=== PATIENT | female | born 1940 | race Caucasian/White ===

== ENCOUNTER 2019-05-08 18:49 | Inpatient (IN) | payer MEDICARE, BC ==
[2019-05-08] MEDS ORDERED: ASPIRIN 81 MG PO STA (19:06)
--- NOTE | 2019-05-08 19:26 | ED ---
General Adult HPI - General Source: patient, RN notes reviewed Mode of arrival: ambulatory Limitations: no limitations <Jason Flores - Last Filed: 05/08/19 19:52> <Dionisio Kapadia - Last Filed: 05/08/19 21:19> - General Chief complaint: Shortness of Breath Stated complaint: Dyspnea Time Seen by Provider: 05/08/19 19:06 - History of Present Illness Initial comments: Patient is a pleasant 78-year-old female presenting to the emergency department with exertional dyspnea. Symptoms have been occurring for a couple of days, worse today. Dyspnea is minimal at rest. Patient did have mild pressure in her chest yesterday, none today. Patient does have occasional palpitations. Patient has been seen her doctor regarding pressure medication and did have recent change in month ago. No leg pain or leg swelling. Patient did have somewhat similar symptoms around a month ago however does not chronically have the symptoms. (Jason Flores) - Related Data Home Medications Medication Instructions Recorded Confirmed Aspirin EC [Ecotrin Low Dose] 162 mg PO HS 05/08/19 05/08/19 Cyanocobalamin (Vitamin B-12) 1,000 mcg PO DAILY 05/08/19 05/08/19 [Vitamin B-12] Levothyroxine Sodium [Synthroid] 125 mcg PO DAILY 05/08/19 05/08/19 Losartan [Cozaar] 25 mg PO DAILY 05/08/19 05/08/19 Magnesium Oxide [Mag-Ox] 400 mg PO HS 05/08/19 05/08/19 Rosuvastatin [Crestor] 10 mg PO HS 05/08/19 05/08/19 Allergies Allergy/AdvReac Type Severity Reaction Status Date / Time amoxicillin AdvReac Nausea & Verified 05/08/19 20:20 Vomiting & Diarrhea Review of Systems ROS Other: All systems not noted in ROS Statement are negative. Constitutional: Denies: fever Eyes: Denies: eye pain ENT: Denies: ear pain Respiratory: Reports: as per HPI, dyspnea. Denies: cough Cardiovascular: Reports: as per HPI, palpitations Endocrine: Reports: fatigue Gastrointestinal: Denies: abdominal pain, nausea Genitourinary: Denies: urgency Musculoskeletal: Denies: back pain Skin: Denies: rash Neurological: Denies: weakness <Jason Flores - Last Filed: 05/08/19 19:52> ROS Other: All systems not noted in ROS Statement are negative. <Dionisio Kapadia - Last Filed: 05/08/19 21:19> ROS Statement: Those systems with pertinent positive or pertinent negative responses have been documented in the HPI. Past Medical History Past Medical History: CVA/TIA, Hypertension Additional Past Medical History / Comment(s): breast cx 1991 History of Any Multi-Drug Resistant Organisms: None Reported Past Surgical History: Heart Catheterization With Stent Past Psychological History: No Psychological Hx Reported Smoking Status: Never smoker Past Alcohol Use History: None Reported Past Drug Use History: None Reported <Jason Flores - Last Filed: 05/08/19 19:52> General Exam Limitations: no limitations General appearance: alert, in no apparent distress Head exam: Present: normocephalic Eye exam: Present: normal appearance, PERRL ENT exam: Present: normal oropharynx Neck exam: Present: normal inspection Respiratory exam: Present: normal lung sounds bilaterally. Absent: chest wall tenderness Cardiovascular Exam: Present: regular rate, normal rhythm Expanded Peripheral pulses: 2+: Radial (R), Radial (L), Dorsalis Pedis (R), Dorsalis Pedis (L) GI/Abdominal exam: Present: soft. Absent: distended, tenderness Extremities exam: Present: normal inspection. Absent: pedal edema, calf tenderness Back exam: Present: normal inspection Neurological exam: Present: alert Psychiatric exam: Present: normal affect, normal mood Skin exam: Present: normal color <Jason Flores - Last Filed: 05/08/19 19:52> Course <Jason Flores - Last Filed: 05/08/19 19:52> <Dionisio Kapadia - Last Filed: 05/08/19 21:19> Vital Signs 05/08/19 18:56 Temperature 98.0 F Pulse Rate 91 Respiratory 16 Rate Blood Pressure 161/80 O2 Sat by Pulse 98 Oximetry - Reevaluation(s) Reevaluation #1: 05/08/19 19:[address] Perez for final disposition. (Jason Flores) Reevaluation #2: 05/08/19 21:18 Patient still complaining of exertional dyspnea and no current distress sitting in bed (Dionisio Kapadia) - Consultations Consultation #1: Spoke with Dr. Chris acceptable for admission (Dionisio Kapadia) EKG Findings - EKG Comments: EKG Findings:: Normal sinus rhythm 89. TN 158. QRS 76. QT 364. QTC 442. Normal axis. Normal QRS. No acute ST change. <Jason Flores - Last Filed: 05/08/19 19:52> Medical Decision Making - Lab Data Result diagrams: 05/08/19 19:40 05/08/19 19:40 - Radiology Data Radiology results: report reviewed (X-ray CTA chest negative for acute disease), image reviewed <Dionisio Kapadia - Last Filed: 05/08/19 21:19> - Medical Decision Making 78 female to the ED co SOB and exertional dtspnea, patient to be admitted for cardiology evaluation and monitoring (Dionisio Kapadia) - Lab Data Lab Results 05/08/19 05/08/19 05/08/19 Range/Units 19:40 19:40 19:40 WBC 9.9 (3.8-10.6) k/uL RBC 4.44 (3.80-5.40) m/uL Hgb 15.1 (11.4-16.0) gm/dL Hct 43.5 (34.0-46.0) % MCV 97.9 (80.0-100.0) fL MCH 33.9 (25.0-35.0) pg MCHC 34.6 (31.0-37.0) g/dL RDW 12.4 (11.5-15.5) % Plt Count 224 (150-450) k/uL Neutrophils % 73 % Lymphocytes % 17 % Monocytes % 6 % Eosinophils % 1 % Basophils % 0 % Neutrophils # 7.2 (1.3-7.7) k/uL Lymphocytes # 1.7 (1.0-4.8) k/uL Monocytes # 0.6 (0-1.0) k/uL Eosinophils # 0.1 (0-0.7) k/uL Basophils # 0.0 (0-0.2) k/uL PT (9.0-12.0) sec INR (<1.2) APTT (22.0-30.0) sec D-Dimer (<0.60) mg/L FEU Sodium 138 (137-145) mmol/L Potassium 4.8 (3.5-5.1) mmol/L Chloride 107 (98-107) mmol/L Carbon Dioxide 23 (22-30) mmol/L Anion Gap 8 mmol/L BUN 28 H (7-17) mg/dL Creatinine 0.76 (0.52-1.04) mg/dL Est GFR (CKD-EPI)AfAm 87 (>60 ml/min/1.73 sqM) Est GFR (CKD-EPI)NonAf 75 (>60 ml/min/1.73 sqM) Glucose 106 H (74-99) mg/dL Calcium 9.8 (8.4-10.2) mg/dL Magnesium 2.0 (1.6-2.3) mg/dL Total Bilirubin 0.4 (0.2-1.3) mg/dL AST 53 H (14-36) U/L ALT 55 H (9-52) U/L Alkaline Phosphatase 60 (38-126) U/L Troponin I (0.000-0.034) ng/mL NT-Pro-B Natriuret Pep 58 pg/mL Total Protein 7.3 (6.3-8.2) g/dL Albumin 4.2 (3.5-5.0) g/dL Urine Color Urine Appearance (Clear) Urine pH (5.0-8.0) Ur Specific [place] (1.001-1.035) Urine Protein (Negative) Urine Glucose (UA) (Negative) Urine Ketones (Negative) Urine Blood (Negative) Urine Nitrite (Negative) Urine Bilirubin (Negative) Urine Urobilinogen (<2.0) mg/dL Ur Leukocyte Esterase (Negative) Urine RBC (0-5) /hpf Urine WBC (0-5) /hpf Ur Squamous Epith Cells (0-4) /hpf Urine Bacteria (None) /hpf Urine Mucus (None) /hpf Urine Yeast (Budding) (None) /hpf 05/08/19 05/08/19 05/08/19 Range/Units 19:40 19:40 19:40 WBC (3.8-10.6) k/uL RBC (3.80-5.40) m/uL Hgb (11.4-16.0) gm/dL Hct (34.0-46.0) % MCV (80.0-100.0) fL MCH (25.0-35.0) pg MCHC (31.0-37.0) g/dL RDW (11.5-15.5) % Plt Count (150-450) k/uL Neutrophils % % Lymphocytes % % Monocytes % % Eosinophils % % Basophils % % Neutrophils # (1.3-7.7) k/uL Lymphocytes # (1.0-4.8) k/uL Monocytes # (0-1.0) k/uL Eosinophils # (0-0.7) k/uL Basophils # (0-0.2) k/uL PT 9.6 (9.0-12.0) sec INR 0.9 (<1.2) APTT 24.4 (22.0-30.0) sec D-Dimer 1.69 H (<0.60) mg/L FEU Sodium (137-145) mmol/L Potassium (3.5-5.1) mmol/L Chloride (98-107) mmol/L Carbon Dioxide (22-30) mmol/L Anion Gap mmol/L BUN (7-17) mg/dL Creatinine (0.52-1.04) mg/dL Est GFR (CKD-EPI)AfAm (>60 ml/min/1.73 sqM) Est GFR (CKD-EPI)NonAf (>60 ml/min/1.73 sqM) Glucose (74-99) mg/dL Calcium (8.4-10.2) mg/dL Magnesium (1.6-2.3) mg/dL Total Bilirubin (0.2-1.3) mg/dL AST (14-36) U/L ALT (9-52) U/L Alkaline Phosphatase (38-126) U/L Troponin I <0.012 (0.000-0.034) ng/mL NT-Pro-B Natriuret Pep pg/mL Total Protein (6.3-8.2) g/dL Albumin (3.5-5.0) g/dL Urine Color Light Yellow Urine Appearance Clear (Clear) Urine pH 5.0 (5.0-8.0) Ur Specific [place] 1.006 (1.001-1.035) Urine Protein Negative (Negative) Urine Glucose (UA) Negative (Negative) Urine Ketones Negative (Negative) Urine Blood Negative (Negative) Urine Nitrite Negative (Negative) Urine Bilirubin Negative (Negative) Urine Urobilinogen <2.0 (<2.0) mg/dL Ur Leukocyte Esterase Large H (Negative) Urine RBC 4 (0-5) /hpf Urine WBC 50 H (0-5) /hpf Ur Squamous Epith Cells <1 (0-4) /hpf Urine Bacteria Rare H (None) /hpf Urine Mucus Rare H (None) /hpf Urine Yeast (Budding) Occasional H (None) /hpf Disposition <Jason Flores - Last Filed: 05/08/19 19:52> Is patient prescribed a controlled substance at d/c from ED?: No <Dionisio Kapadia - Last Filed: 05/08/19 21:19> Clinical Impression: Dyspnea, Chest pain, UTI (urinary tract infection) Disposition: ADMITTED IP TO THIS HOSP Condition: Fair Referrals: Agustin Duron DO [Primary Care Provider] - 1-2 days
[2019-05-08 20:01] LABS: Basophils % (A) 0 %; Eosinophils # (A) 0.1 k/uL (0-0.7); Eosinophils % (A) 1 %; HCT 43.5 % (34.0-46.0); HGB 15.1 gm/dL (11.4-16.0); Lymphocytes # (A) 1.7 k/uL (1.0-4.8); Lymphocytes % (A) 17 %; MCH 33.9 pg (25.0-35.0); MCHC 34.6 g/dL (31.0-37.0); MCV 97.9 fL (80.0-100.0); Mean Platelet Volume 6.4; Monocytes # (A) 0.6 k/uL (0-1.0); Monocytes % (A) 6 %; Neutrophils # (A) 7.2 k/uL (1.3-7.7); Neutrophils % (A) 73 %; Platelet Count 224 k/uL (150-450); RBC 4.44 m/uL (3.80-5.40); RDW 12.4 % (11.5-15.5); WBC 9.9 k/uL (3.8-10.6)
[2019-05-08 20:11] LABS: Albumin 4.2 g/dL (3.5-5.0); Calcium 9.8 mg/dL (8.4-10.2); Total Bilirubin 0.4 mg/dL (0.2-1.3); Total Protein 7.3 g/dL (6.3-8.2)
[2019-05-08 20:12] LABS: Potassium 4.8 mmol/L (3.5-5.1)
--- NOTE | 2019-05-08 20:18 | XR ---
EXAMINATION TYPE: XR chest 2V DATE OF EXAM: 05/08/2019 COMPARISON: NONE HISTORY: Hypertension. Short of breath TECHNIQUE: Frontal and lateral views of the chest are obtained. FINDINGS: Heart is normal. Lungs are clear of consolidation. There are no hilar masses. There is spu rring in the thoracic spine. There are chest leads. IMPRESSION: No active cardiopulmonary disease.
[2019-05-08 20:23] LABS: INR 0.9 (<1.2)
[2019-05-08 20:24] LABS: Partial Thromboplastin Time 24.4 sec (22.0-30.0); Prothrombin Time 9.6 sec (9.0-12.0)
[2019-05-08 20:26] LABS: D-Dimer 1.69 mg/L FEU (<0.60)
[2019-05-08 20:32] LABS: Appearance,Urine Clear (Clear); Bacteria,Urine Rare /hpf; Bilirubin,Urine Negative (Negative); Blood,Urine Negative (Negative); Budding Yeast,Urine Occasional /hpf; Color,Urine Light Yellow; Glucose,Urine (UA) Negative (Negative); Ketones,Urine Negative (Negative); Leukocyte Esterase,Urine Large (Negative); Mucus,Urine Rare /hpf; Nitrite,Urine Negative (Negative); Protein,Urine Negative (Negative); RBC,Urine 4 /hpf (0-5); Specific Gravity,Urine 1.006 (1.001-1.035); Squamous Epithelial Cell,Urine <1 /hpf (0-4); Urobilinogen,Urine <2.0 mg/dL (<2.0)
--- NOTE | 2019-05-08 21:07 | CT ---
EXAMINATION TYPE: CT angio chest DATE OF EXAM: 05/08/2019 8:56 PM COMPARISON: None HISTORY: SOB, palpatations, hypertension CT DLP: 429.9 mGycm Automated exposure control for dose reduction was used. CONTRAST: CTA scan of the thorax is performed with IV Contrast, patient injected with 70 mL of Isovue 370, pulm onary embolism protocol. . There are 3-D post processed images. FINDINGS: The lungs are clear of consolidation. There is no pleural effusion. There is no pericardial effusion. There is no mediastinal adenopathy. There are no hilar masses. Thoracic aorta is intact without evid ence of aneurysm or dissection. Heart size is normal. There is normal contrast opacification of the pulmonary arteries. There are no filling defects. There is multilevel mild spondylotic changes in the thoracic spine. There is small hiatal hernia. IMPRESSION: NO EVIDENCE OF PULMONARY EMBOLISM. NO ACTIVE CARDIOPULMONARY DISEASE.
[2019-05-08] MEDS ORDERED: MORPHINE SULFATE 4 MG/ML SYRINGE IV PRN (21:20)
[2019-05-08] MEDS ORDERED: NITROGLYCERIN SL TABS 0.4 MG TAB SUBLINGUAL PRN (21:20)
[2019-05-09] MEDS: LEVOTHYROXINE 125 MCG TAB PO SCH (06:03)
[2019-05-09 08:17] LABS: Cholesterol 147 mg/dL (<200); HDL Cholesterol 57 mg/dL (40-60); LDL Cholesterol,Calculated 70 mg/dL (0-99); Triglycerides 100 mg/dL (<150)
[2019-05-09] MEDS: CYANOCOBALAMIN 500 MCG TAB PO SCH (08:47)
[2019-05-09] MEDS: LOSARTAN 50 MG TAB PO SCH (08:47)
[2019-05-09] MEDS ORDERED: ASPIRIN 325 MG TAB PO SCH (09:00)
[2019-05-09] MEDS ORDERED: LOSARTAN 25 MG TAB PO SCH (09:00)
[2019-05-09] MEDS ORDERED: CAFFEINE CITRATE 60 MG/3 ML VIAL IV PRN (09:09)
[2019-05-09] MEDS ORDERED: REGADENOSON 0.4 MG/5 ML SYRINGE IV ONE (09:09)
[2019-05-09] MEDS ORDERED: AMINOPHYLLINE 500 MG/20 ML VIAL IV PRN (09:09)
[2019-05-09] MEDS ORDERED: ALPRAZolam 0.5 MG TAB PO PRN (11:31)
[2019-05-09] MEDS ORDERED: ALPRAZolam 0.25 MG TAB PO PRN (11:31)
[2019-05-09] MEDS ORDERED: NITROGLYCERIN SL TABS 0.4 MG TAB SUBLINGUAL PRN (11:31)
--- NOTE | 2019-05-09 11:45 | CONS ---
CONSULTATION CHIEF COMPLAINT: Chest pain. Lolly is a 78-year-old lady with history of dyslipidemia, hypertension, hypothyroidism, and known coronary artery disease status post prior angioplasty, who follows with me regularly in my office, comes in complaining of episodes of palpitations and vague chest discomfort. She describes it as a burning sensation in the precordial area, mild intensity and related to exertion and unassociated with diaphoresis. This, however, was associated with palpitations. At the time of my evaluation this morning, she is chest pain-free and hemodynamically stable. Her EKG does not reveal acute ischemic changes. On her initial presentation, she had a D-dimer that was elevated and she went on to have a CT scan of the chest that was negative for pulmonary embolism. She has also been diagnosed with urinary tract infection with an elevated leukocyte esterase and white cell WBCs for which she received a dose of antibiotics. Given the recurrent unexplained episodes of sustained palpitations and episodes of chest discomfort, I advised the patient to undergo cardiac catheterization and if necessary perform catheter based revascularization. I am going to let the patient get another dose of antibiotics today and we will do this tomorrow. PAST MEDICAL HISTORY: Significant for coronary artery disease status post angioplasty, hypertension, dyslipidemia, and hypothyroidism. MEDICATIONS: Include Crestor 10 daily, Cozaar 25 daily, Synthroid, B12, aspirin. ALLERGIES: TO AMOXICILLIN. FAMILY HISTORY: Negative for premature coronary artery disease. SOCIAL HISTORY: Negative for current smoking, EtOH abuse, or drug abuse. REVIEW OF SYSTEMS: HEENT is unremarkable. CARDIAC as described above. RESPIRATORY negative. GI negative. GENITOURINARY: Significant for urinary tract infection. PSYCHOSOCIAL: Negative. ENDOCRINE: Negative. DERM negative. CONSTITUTIONAL negative. ONCOLOGICAL negative. Rest of the system review is not relevant. PHYSICAL EXAM: Patient is comfortable at rest. Heart rate is 80 beats per minute. Blood pressure is 169/68. Respirations 18. Chest exam reveals good air entry bilaterally. Heart exam reveals first and second heart sounds. No gallop. An S4 is heard. Abdomen is soft, nontender. Exam of extremities did not reveal any edema. Peripheral pulses are felt. [employer] exam did not reveal focal neurological deficits. LABS: Labs show that the hemoglobin is 15.1, platelet count is 224. D-dimer is elevated CT chest is negative. Potassium is 4.8, creatinine is 0.76. Tropes are negative. AST, ALT are mildly elevated. LDL cholesterol is 70. EKG does not reveal ischemic changes. ASSESSMENT: 1. Precordial chest pain. 2. Palpitations. 3. Uncontrolled hypertension. 4. Coronary artery disease status post angioplasty. 5. Urinary tract infection. PLAN: I am going to increase the dose of losartan to 100 mg daily for more optimal blood pressure control . I will continue the antibiotics and schedule the patient for a cardiac catheterization tomorrow. MMODL / IJN: [id number] /
--- NOTE | 2019-05-09 17:05 | P.HPIM ---
History of Present Illness H&P Date: 05/09/19 Chief Complaint: Palpitation History of presenting complaint: This is a very pleasant 78-year-old patient of Dr. Duron. 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 Patient's blood pressure medications are being adjusted by her air and water tester. Recently the medication for the adjusted. Yesterday morning her blood pressure was fine but tired seeming her blood pressure was running a high of 2.170 systolic. Patient's feeling of palpitations. There is no dizziness, no lightheadedness or perspiration. Patient does feel tired and rundown. No fever no chills. Questionable chest pressure. Presented to the ER.. Pulmonary embolism was ruled out. Review of systems: GEN.: Tired EYES: None HEENT: None NECK: None RESPIRATORY: None CARDIOVASCULAR: [As above GASTROINTESTINAL: None GENITOURINARY: None MUSCULOSKELETAL: [Pain in the joints LYMPHATICS: None HEMATOLOGICAL: None PSYCHIATRY: None NEUROLOGICAL: Numbness tingling distally Past medical history to include: Hypertension, stroke affecting the right eye lower vision field, peripheral neuropathy, osteoarthritis Social history: Does not smoke or drink alcohol. Physical examination: VITAL SIGNS: 98, 91, 16, 161/80, 98% room air GENERAL: BMI 31.6, sitting up at the bedside. EYES: Pupils equal. Conjunctiva normal. HEENT: External appearance of nose and ears normal, oral cavity grossly normal. NECK: JVD not raised; masses not palpable. HEART: First and second heart sounds are normal; no edema. LUNGS: Respiratory rate normal; clear to auscultation. ABDOMEN: Soft, nontender, liver spleen not palpable, no masses palpable. PSYCH: Alert and oriented x3; mood and affect normal. NEUROLOGICAL: Cranial nerves grossly intact; no facial asymmetry, power and sensation grossly intact. LYMPHATICS: No lymph nodes palpable in the axilla and neck MUSCULOSKELETAL: Evidence of OA especially in the hands INVESTIGATIONS, reviewed in the clinical context: White count 9.9 hemoglobin 15.1 d-dimer 1.69 potassium 4.8 creatinine 0.76 AST 53 ALT 55 Troponin I 3 negative EKG tracing-personally reviewed by me shows normal sinus rhythm Chest x-ray film-personally reviewed by me shows possibly some chronic changes Chest CTA-negative for PE Assessment: -This is a patient's been having a blood pressure medication adjusted home. Having episodes of palpitations and and tiredness. Negative for PE. Rule out paroxysmal arrhythmias. Underlying cardiac ischemia to be ruled out. -Obesity BMI 31.6 -Essential hypertension uncontrolled -Peripheral neuropathy, idiopathic -Primary osteoarthritis Plan: -Cardial she was consulted. Troponins have been negative. Patient be scheduled for cardiac catheter tomorrow. Blood pressure medication. Adjusted. Lovenox for DVT prophylaxis. Care was discussed with the patient. Past Medical History Past Medical History: CVA/TIA, Hypertension Additional Past Medical History / Comment(s): breast cx 1990, pt states mini stroke in her eye with blurrineness in right eye History of Any Multi-Drug Resistant Organisms: None Reported Past Surgical History: Heart Catheterization With Stent Date of Last Stent Placement:: 2006 Past Psychological History: No Psychological Hx Reported Smoking Status: Never smoker Past Alcohol Use History: None Reported Past Drug Use History: None Reported - Past Family History Father Additional Family Medical History / Comment(s): states lived to be 84, passed from brain tumor, cardiac disease Mother Family Medical History: Diabetes Mellitus Additional Family Medical History / Comment(s): states lived to be 83, from pancreatitis Brother(s) Family Medical History: Cancer, Hypertension Sister(s) Family Medical History: Cancer, Hypertension Medications and Allergies Home Medications Medication Instructions Recorded Confirmed Type Aspirin EC [Ecotrin Low Dose] 162 mg PO HS 05/08/19 05/08/19 History Cyanocobalamin (Vitamin B-12) 1,000 mcg PO DAILY 05/08/19 05/08/19 History [Vitamin B-12] Levothyroxine Sodium [Synthroid] 125 mcg PO DAILY 05/08/19 05/08/19 History Losartan [Cozaar] 25 mg PO DAILY 05/08/19 05/08/19 History Magnesium Oxide [Mag-Ox] 400 mg PO HS 05/08/19 05/08/19 History Rosuvastatin [Crestor] 10 mg PO HS 05/08/19 05/08/19 History Allergies Allergy/AdvReac Type Severity Reaction Status Date / Time amoxicillin AdvReac Nausea & Verified 05/08/19 20:20 Vomiting & Diarrhea Physical Exam Vitals: Vital Signs Temp Pulse Pulse Resp BP BP Pulse Ox 05/09/19 08:00 97.9 F 84 16 153/60 98 05/09/19 03:58 85 16 05/09/19 00:00 85 16 05/08/19 22:44 97.6 F 85 16 169/68 100 05/08/19 21:30 97.1 F L 80 18 148/72 97 05/08/19 21:00 16 171/81 98 05/08/19 20:30 82 18 149/81 05/08/19 20:00 82 14 141/69 05/08/19 19:30 86 18 151/90 95 05/08/19 19:16 87 24 98 05/08/19 18:56 98.0 F 91 16 161/80 98 Intake and Output 05/08/19 05/09/19 05/09/19 22:59 06:59 14:59 Intake Total 360 Output Total 800 Balance -800 360 Intake: Oral 360 Output: Urine 800 Other: # Voids 1 Weight 86.183 kg 80.83 kg Results CBC & Chem 7: 05/08/19 19:40 05/08/19 19:40 Labs: Abnormal Lab Results - Last 24 Hours (Table) 05/08/19 05/08/19 05/08/19 Range/Units 19:40 19:40 19:40 D-Dimer 1.69 H (<0.60) mg/L FEU BUN 28 H (7-17) mg/dL Glucose 106 H (74-99) mg/dL AST 53 H (14-36) U/L ALT 55 H (9-52) U/L Ur Leukocyte Esterase Large H (Negative) Urine WBC 50 H (0-5) /hpf Urine Bacteria Rare H (None) /hpf Urine Mucus Rare H (None) /hpf Urine Yeast (Budding) Occasional H (None) /hpf Microbiology - Last 24 Hours (Table) 05/08/19 19:40 Urine Culture - Preliminary Urine,Clean Catch Thrombosis Risk Factor Assmnt - Choose All That Apply Each Risk Factor Represents 3 Points: Age 75 years or older Thrombosis Risk Factor Assessment Total Risk Factor Score: 3 Thrombosis Risk Factor Assessment Level: Moderate Risk
[2019-05-09] MEDS: ENOXAPARIN 40 MG/0.4 ML SYRINGE SQ SCH (17:22)
[2019-05-09] MEDS: MAGNESIUM OXIDE 400 MG TAB PO SCH (20:10)
[2019-05-09] MEDS ORDERED: ASPIRIN 81 MG PO SCH (21:00)
[2019-05-09] MEDS ORDERED: ATORVASTATIN 20 MG TAB PO SCH (21:00)
[2019-05-10] MEDS ORDERED: ASPIRIN 325 MG TAB PO ONE (06:00)
[2019-05-10] MEDS ORDERED: ATORVASTATIN 80 MG TAB PO ONE (06:00)
[2019-05-10] MEDS ORDERED: SODIUM CHLORIDE 0.9% 1,000 ML in EMPTY BAG 1 BAG IV ONE (06:00)
[2019-05-10] MEDS: LEVOTHYROXINE 125 MCG TAB PO SCH (06:10)
[2019-05-10] MEDS: LOSARTAN 50 MG TAB PO SCH (06:10)
[2019-05-10] MEDS: ENOXAPARIN 40 MG/0.4 ML SYRINGE SQ SCH (06:11)
[2019-05-10] MEDS: CYANOCOBALAMIN 500 MCG TAB PO SCH (06:11)
[2019-05-10] MEDS: CEPHALEXIN 250 MG CAP PO SCH ×5 (06:11→22:54)
[2019-05-10 09:08] LABS: Basophils # (A) 0.1 k/uL (0-0.2); Basophils % (A) 1 %; Eosinophils # (A) 0.2 k/uL (0-0.7); Eosinophils % (A) 2 %; HCT 45.9 % (34.0-46.0); HGB 15.2 gm/dL (11.4-16.0); Lymphocytes # (A) 1.2 k/uL (1.0-4.8); Lymphocytes % (A) 18 %; MCH 32.9 pg (25.0-35.0); MCHC 33.2 g/dL (31.0-37.0); MCV 99.2 fL (80.0-100.0); Mean Platelet Volume 6.2; Monocytes # (A) 0.4 k/uL (0-1.0); Monocytes % (A) 6 %; Neutrophils # (A) 4.7 k/uL (1.3-7.7); Neutrophils % (A) 70 %; Platelet Count 192 k/uL (150-450); RBC 4.62 m/uL (3.80-5.40); RDW 12.4 % (11.5-15.5); WBC 6.7 k/uL (3.8-10.6)
[2019-05-10] MEDS ORDERED: IV FLUID CONTINUATION 500 ML IV ONE (09:17)
[2019-05-10] MEDS ORDERED: fentaNYL (PF) 50 MCG/ML 2 ML AMP ONE (09:22)
[2019-05-10 09:30] LABS: Albumin 3.9 g/dL (3.5-5.0); Calcium 9.5 mg/dL (8.4-10.2); Potassium 5.1 mmol/L (3.5-5.1); Total Bilirubin 0.4 mg/dL (0.2-1.3); Total Protein 6.8 g/dL (6.3-8.2)
[2019-05-10] MEDS ORDERED: fentaNYL (PF) 50 MCG/ML 2 ML AMP IV ONE (09:38)
[2019-05-10] MEDS ORDERED: MIDAZOLAM 2 MG/2 ML VIAL IV ONE (09:38)
[2019-05-10] MEDS ORDERED: LIDOCAINE 1% INJ 10MG/ML (20 ML MDV) SQ ONE (09:39)
[2019-05-10] MEDS ORDERED: NITROGLYCERIN OINT 1 INCH/GM PACKET TOPICAL ONE ×2 (09:45→09:46)
[2019-05-10] MEDS ORDERED: IOPAMIDOL-370 125ML BTL INJ ONE (09:56)
[2019-05-10] MEDS ORDERED: RX INFO: IV CONTRAST WAS GIVEN 1 EACH MISC MISCELLANE PRN (10:09)
[2019-05-10] MEDS: CARVEDILOL 3.125 MG TAB PO SCH ×2 (10:42→16:42)
--- NOTE | 2019-05-10 10:44 | CC ---
CARDIAC CATHETERIZATION REPORT INDICATION: Unstable angina. PROCEDURE NOTE: After obtaining informed consent, left heart catheterization and coronary angiogram were performed via the right femoral artery using standard Nakita catheters. The patient tolerated the procedure well without any obvious immediate complications. A femoral angiogram was performed and Angio-Seal will be deployed for hemostasis. The patient received moderate conscious sedation. Total sedation time was 23 minutes. FINDINGS: 1. HEMODYNAMICS: Left ventricular end-diastolic pressure is 18 mm. There is no significant gradient across the aortic valve. 2. LEFT VENTRICULOGRAM: Left ventriculogram is not performed. 3. ANGIOGRAPHIC DATA: Left Main Coronary Artery: Left main coronary artery is a normal-sized vessel and is free of stenosis. Divides into left anterior descending coronary artery and circumflex coronary artery. Mid LAD was previously stented and the stent appears patent. Very mild atherosclerotic plaque inside the LAD. Circumflex coronary artery is a nondominant vessel and is free of significant stenosis. Right coronary artery is a large dominant vessel shows mild nonobstructive coronary artery disease on the right coronary artery. CONCLUSIONS: 1. Patent stent within the left anterior descending artery. 2. Mildly elevated left ventricular end-diastolic pressures. PLAN: Patient's chest discomfort is probably noncardiac in origin. She does not require any further cardiac workup at this time. We will adjust her antihypertensives and hopefully she can be discharged home later today. MMODL / IJN: [id number] /
--- NOTE | 2019-05-10 10:50 | LTR ---
May 10, 2019 Re: Lolly Merchant Dear Davi: I performed cardiac catheterization on Lolly Merchant. A detailed catheterization note is enclosed for your records. I am happy to report you that the previously stented LAD appears patent and she does not have any significant new obstructive CAD. Thank you for giving me the privilege to participate in the care of this pleasant lady. Sincerely, MD MILADYS Galan / DARIN: [id number] /
--- NOTE | 2019-05-10 22:30 | P.PN ---
Progress Note - Text Progress Note Date: 05/10/19 Chief Complaint: Palpitation History of presenting complaint: This is a very pleasant 78-year-old patient of Dr. Duron. 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 Recently the medication for the adjusted. Yesterday morning her blood pressure was fine but tired seeming her blood pressure was running a high of 2.170 systolic. Patient's feeling of palpitations. There is no dizziness, no lightheadedness or perspiration. Patient does feel tired and rundown. No fever no chills. Questionable chest pressure. Presented to the ER.. Pulmonary embolism was ruled out. Today-had a cardiac catheterization. Found to have a patent stent. Later in the day had an episode of palpitation again. Telemetry was unremarkable. Blood pressure was good. Review of systems: Was done for constitutional, cardiovascular, GI, pulmonary. relevant finding as above Active Medications Alprazolam (Xanax) 0.25 mg PO Q6HR PRN PRN Reason: Mild Anxiety Alprazolam (Xanax) 0.5 mg PO Q6HR PRN PRN Reason: Moderate Anxiety Aminophylline (Aminophylline) 100 mg IV ONCE PRN PRN Reason: Patient Response Aspirin (Aspirin) 81 mg PO HS KALEB Atorvastatin Calcium (Lipitor) 20 mg PO HS KALEB Caffeine Citrate (Cafcit Inj) 60 mg IV ONCE PRN PRN Reason: Patient Response Carvedilol (Coreg) 3.125 mg PO BID-W/MEALS [facility] Last Admin: 05/10/19 16:42 Dose: 3.125 mg Documented by: Cephalexin (Keflex) 250 mg PO QID [facility] Last Admin: 05/10/19 16:44 Dose: 250 mg Documented by: Cyanocobalamin (Vitamin B-12) 1,000 mcg PO DAILY [facility] Last Admin: 05/10/19 06:11 Dose: 1,000 mcg Documented by: Enoxaparin Sodium (Lovenox) 40 mg SQ DAILY [facility] Last Admin: 05/10/19 06:11 Dose: 40 mg Documented by: Levothyroxine Sodium (Synthroid) 125 mcg PO DAILY@0700 [facility] Last Admin: 05/10/19 06:10 Dose: 125 mcg Documented by: Losartan Potassium (Cozaar) 50 mg PO DAILY [facility] Last Admin: 05/10/19 06:10 Dose: 50 mg Documented by: Magnesium Oxide (Mag-Ox) 400 mg PO HS [facility] Last Admin: 05/09/19 20:10 Dose: 400 mg Documented by: Miscellaneous Information (Rx Info: Iv Contrast Was Given) 1 each MISCELLANE DAILY PRN PRN Reason: Per Protocol Stop: 05/12/19 10:09 Morphine Sulfate (Morphine Sulfate (Inj)) 4 mg IV Q4HR PRN PRN Reason: Chest Pain Nitroglycerin (Nitrostat) 0.4 mg SUBLINGUAL Q5M PRN PRN Reason: Chest Pain Physical examination: VITAL SIGNS: 98.1, 79, 16, 126/65, 97% room air GENERAL: Laying in bed, comfortable EYES: Pupils equal. Conjunctiva normal. HEENT: External appearance of nose and ears normal, oral cavity grossly normal. NECK: JVD not raised; masses not palpable. HEART: First and second heart sounds are normal; no edema. LUNGS: Respiratory rate normal; clear to auscultation. ABDOMEN: Soft, nontender, liver spleen not palpable, no masses palpable. PSYCH: Alert and oriented x3; mood and affect normal. INVESTIGATIONS, reviewed in the clinical context: White count 6.7" 15.2 potassium 5.1 crit 0.79 TSH normal Previous testing White count 9.9 hemoglobin 15.1 d-dimer 1.69 potassium 4.8 creatinine 0.76 AST 53 ALT 55 Troponin I 3 negative EKG tracing-personally reviewed by me shows normal sinus rhythm Chest x-ray film-personally reviewed by me shows possibly some chronic changes Chest CTA-negative for PE Assessment: -Episodes of palpitation. Wonder if there is an anxiety component. We'll do outpatient testing for pheochromocytoma. Given the findings of palpitations and episodic high blood pressures. -Coronary artery disease with a patent stent. Status post cardiac catheterization -Obesity BMI 31.6 -Essential hypertension uncontrolled -Peripheral neuropathy, idiopathic -Primary osteoarthritis Plan: Observe the patient today. Encouraged to ambulate. Discharge home tomorrow.
[2019-05-10] MEDS: MAGNESIUM OXIDE 400 MG TAB PO SCH (23:24)
[2019-05-11] MEDS: LEVOTHYROXINE 125 MCG TAB PO SCH (06:32)
[2019-05-11] MEDS: CARVEDILOL 3.125 MG TAB PO SCH (06:32)
[2019-05-11] MEDS: LOSARTAN 50 MG TAB PO SCH (08:53)
[2019-05-11] MEDS: ENOXAPARIN 40 MG/0.4 ML SYRINGE SQ SCH (08:53)
[2019-05-11] MEDS: CEPHALEXIN 250 MG CAP PO SCH ×2 (08:53→11:57)
[2019-05-11] MEDS: CYANOCOBALAMIN 500 MCG TAB PO SCH (08:54)
[2019-05-11 10:00] VITALS: RESP 16
[2019-05-11 12:08] VITALS: BP 135/65; PULSE 76; TEMP 97.8
--- NOTE | 2019-05-11 14:12 | P.PN ---
Subjective Progress Note Date: 05/11/19 This is a 78-year-old female with history of hyperlipidemia, hypertension, hypothyroidism and known coronary artery disease with prior PCI who presented to the hospital with symptoms of chest discomfort, she was taken to the cardiac catheterization lab by Dr. Cid, which revealed a patent stent within the LAD, mildly elevated left ventricular end-diastolic pressures. A shunt was seen and examined this morning, feels well, denies any chest pain or difficulty in breathing. She's been up ambulating today without any difficulty. I pressure 134/60 with a heart rate of 70, 97% on room air. White blood cell count 6.7, hemoglobin 15.2, platelet count 192. Sodium 140, potassium 5.1, BUN 20 and creatinine 0.7. Objective - Vital Signs Vital signs: Vital Signs Temp 97.8 F 05/11/19 11:16 Pulse 76 05/11/19 11:16 Resp 16 05/11/19 11:16 BP 135/65 05/11/19 11:16 Pulse Ox 97 05/11/19 08:00 Intake & Output 05/10/19 05/11/19 05/11/19 18:59 06:59 18:59 Intake Total 580 240 Output Total 300 Balance 580 -60 Weight 85.3 kg Intake: IV 100 Oral 480 240 Output: Urine 300 Other: Voiding Method Toilet # Voids 2 2 1 - Exam PHYSICAL EXAMINATION: GENERAL: 89-year-old female in no acute distress at the time of my examination HEENT: Head is atraumatic, normocephalic. Pupils equal, round. Sclera anic teric. Conjunctiva are clear. Mucous membranes of the mouth are moist. Neck is supple. There is no elevated jugular venous pressure. No carotid bruit is heard. HEART EXAMINATION: Heart S1, S2 normal. No murmur or gallop heard. CHEST EXAMINATION: Lungs are clear to auscultation and precussion. No chest wall tenderness is noted on palpation or with deep breathing. ABDOMEN: Soft, nontender. Bowel sounds are heard. No organomegaly noted. EXTREMITIES: 2+ peripheral pulses with no evidence of peripheral edema and no calf tenderness noted. Right groin ecchymotic, no hematoma, no bruit. NEUROLOGIC patient is awake, alert and oriented 3 . . - Labs CBC & Chem 7: 05/10/19 08:36 05/10/19 08:36 Labs: Microbiology - Last 24 Hours (Table) 05/08/19 19:40 Urine Culture - Final Urine,Clean Catch Assessment and Plan Plan: Assessment and plan #1 chest pain, status post cardiac catheterization which did not reveal any evidence of obstructive coronary artery disease #2 hypertension #3 history of prior PCI Number for UTI #5 hyperlipidemia Plan From cardiology's perspective, patient may be able to be discharged home today, follow-up appointment will be made with Dr. Cid in the [place] office post discharge. DNP note has been reviewed, I agree with a documented findings and plan of care. Patient was seen and examined.
[2019-05-11] MEDS ORDERED: ATORVASTATIN 20 MG TAB PO SCH (21:00)
[2019-05-11] MEDS ORDERED: ASPIRIN 81 MG PO SCH ×2 (21:00)
--- NOTE | 2019-05-11 23:14 | P.DS ---
Providers Date of admission: 05/09/19 15:18 Expected date of discharge: 05/11/19 Attending physician: Alexy Perez Consults: 05/08/19 21:20 Consult Physician Urgent Consulting Provider: Edwige Claudio Consult Reason/Comments: cp Do you want consulting provider notified?: Yes [facility] Hospital Course: Chief Complaint: Palpitation Hospital course: This is a very pleasant 78-year-old patient of Dr. Duron. 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 Recently the medication were furtherr adjusted. Yesterday morning her blood pressure was fine but by evening her blood pressure was running a high over 200 systolic. Patient's feeling of palpitations. There is no dizziness, no lightheadedness or perspiration. Patient does feel tired and rundown. No fever no chills. Questionable chest pressure. Presented to the ER.. Pulmonary embolism was ruled out.-had a cardiac catheterization. Found to have a patent stent. Because of her presentation, though less likely have given the patient a prescription for 24 hour urine collection for metanephrines. She'll follow-up with the results of the family doctor. This was discussed with the patient and . Discussion and discharge planning more than 35 minutes Consultation: Dr. Jolanta Cid from cardiology Physical examination: VITAL SIGNS: 97.7, 82, 16, 141/64, 97% room air GENERAL: Laying in bed, comfortable EYES: Pupils equal. Conjunctiva normal. HEENT: External appearance of nose and ears normal, oral cavity grossly normal. NECK: JVD not raised; masses not palpable. HEART: First and second heart sounds are normal; no edema. LUNGS: Respiratory rate normal; clear to auscultation. ABDOMEN: Soft, nontender, liver spleen not palpable, no masses palpable. PSYCH: Alert and oriented x3; mood and affect normal. INVESTIGATIONS, reviewed in the clinical context: White count 6.7" 15.2 potassium 5.1 crit 0.79 TSH normal Previous testing White count 9.9 hemoglobin 15.1 d-dimer 1.69 potassium 4.8 creatinine 0.76 AST 53 ALT 55 Troponin I 3 negative EKG tracing-personally reviewed by me shows normal sinus rhythm Chest x-ray film-personally reviewed by me shows possibly some chronic changes Chest CTA-negative for PE Cardiac catheterization-patent stent Assessment: -Episodes of palpitation. Wonder if there is an anxiety component. We'll do outpatient testing for pheochromocytoma. Given the findings of palpitations and episodic high blood pressures. -Coronary artery disease with a patent stent. Status post cardiac catheterization -Obesity BMI 31.6 -Essential hypertension uncontrolled -Peripheral neuropathy, idiopathic -Primary osteoarthritis Disposition: Home Patient Condition at Discharge: Stable Plan - Discharge Summary Discharge Rx Participant: No New Discharge Prescriptions: New Carvedilol [Coreg] 3.125 mg PO BID-W/MEALS #60 tab Losartan [Cozaar] 50 mg PO DAILY #30 tab Nitroglycerin Sl Tabs [Nitrostat] 0.4 mg SUBLINGUAL Q5M PRN #25 tab PRN Reason: Chest Pain Cephalexin [Keflex] 250 mg PO QID #12 cap Continue Magnesium Oxide [Mag-Ox] 400 mg PO HS Levothyroxine Sodium [Synthroid] 125 mcg PO DAILY Aspirin EC [Ecotrin Low Dose] 162 mg PO HS Cyanocobalamin (Vitamin B-12) [Vitamin B-12] 1,000 mcg PO DAILY Changed Rosuvastatin [Crestor] 20 mg PO HS #0 Discontinued Losartan [Cozaar] 25 mg PO DAILY Discharge Medication List Aspirin EC [Ecotrin Low Dose] 162 mg PO HS 05/08/19 [History] Cyanocobalamin (Vitamin B-12) [Vitamin B-12] 1,000 mcg PO DAILY 05/08/19 [History] Levothyroxine Sodium [Synthroid] 125 mcg PO DAILY 05/08/19 [History] Magnesium Oxide [Mag-Ox] 400 mg PO HS 05/08/19 [History] Carvedilol [Coreg] 3.125 mg PO BID-W/MEALS #60 tab 05/11/19 [Rx] Cephalexin [Keflex] 250 mg PO QID #12 cap 05/11/19 [Rx] Losartan [Cozaar] 50 mg PO DAILY #30 tab 05/11/19 [Rx] Nitroglycerin Sl Tabs [Nitrostat] 0.4 mg SUBLINGUAL Q5M PRN #25 tab 05/11/19 [Rx] Rosuvastatin [Crestor] 20 mg PO HS #0 05/11/19 [Rx] Follow up Appointment(s)/Referral(s): Agustin Duron DO [Primary Care Provider] - 06/07/19 2:00 pm (Thursday -earliest available appointment) James Cid MD [STAFF PHYSICIAN] - 05/20/19 1:00 pm (Thursday in [place]) Patient Instructions/Handouts: Urinary Tract Infection in Women (DC), Heart Catheterization (DC) Activity/Diet/Wound Care/Special Instructions: 24 hr urine for pheochromocytoma Discharge Disposition: HOME SELF-CARE
== END 2019-05-11 13:56 | disposition home or self-care (01) | DRG 287 ==
LOC: EC 18:49 → 3SCARD 21:20 → OBSVTOIN 05-09 15:18
PROVIDERS: ADMIT Hospitalist; ATTEND Hospitalist
PROC: 4A023N7 Measurement of Cardiac Sampling and Pressure, Left Heart, Percutaneous Approach (ICD-10-PCS; principal; 2019-05-10 12:00)
PROC: B2111ZZ Fluoroscopy of Multiple Coronary Arteries using Low Osmolar Contrast (ICD-10-PCS; principal; 2019-05-10 12:00)
DX: R00.2 Palpitations (principal); N39.0 Urinary tract infection, site not specified; E03.9 Hypothyroidism, unspecified; E66.9 Obesity, unspecified; E78.5 Hyperlipidemia, unspecified; G62.9 Polyneuropathy, unspecified; H54.7 Unspecified visual loss; I10 Essential (primary) hypertension; M19.91 Primary osteoarthritis, unspecified site; Z68.31 Body mass index [BMI] 31.0-31.9, adult; Z79.890 Hormone replacement therapy; Z79.899 Other long term (current) drug therapy; Z82.49 Family history of ischemic heart disease and other diseases of the circulatory system; Z83.3 Family history of diabetes mellitus; Z86.73 Personal history of transient ischemic attack (TIA), and cerebral infarction without residual deficits; Z98.61 Coronary angioplasty status; Z79.82 Long term (current) use of aspirin; Z88.1 Allergy status to other antibiotic agents; I25.10 Atherosclerotic heart disease of native coronary artery without angina pectoris
CPT/HCPCS: 36415; 71046; 71275; 80053; 80061; 81001; 83735; 83880; 84443; 84484; 85025; 85379; 85610; 85730; 87086; 93005; 93458; 99285

== ENCOUNTER 2021-02-28 18:47 | Observation (INO) | payer MEDICARE, BC ==
[2021-03-01] MEDS ORDERED: NITROGLYCERIN SL TABS 0.4 MG TAB SUBLINGUAL PRN (02:17)
--- NOTE | 2021-03-01 02:50 | XR ---
EXAMINATION TYPE: XR chest 1V DATE OF EXAM: 03/01/2021 COMPARISON: 05/08/2019 HISTORY: Short of breath TECHNIQUE: Single view FINDINGS: Heart is normal. Lungs are clear of consolidation. There are no hilar masses. There are sage st leads. Bony thorax is intact. IMPRESSION: No active cardiopulmonary disease. No change.
[2021-03-01] MEDS: oxyCODONE-APAP 5-325MG 1 EACH TAB PO PRN ×2 (03:16→16:12)
[2021-03-01 05:11] LABS: Basophils # (A) 0.1 k/uL (0-0.2); Basophils % (A) 1 %; Eosinophils # (A) 0.2 k/uL (0-0.7); Eosinophils % (A) 3 %; HCT 34.8 % (34.0-46.0); HGB 11.7 gm/dL (11.4-16.0); Lymphocytes # (A) 1.4 k/uL (1.0-4.8); Lymphocytes % (A) 16 %; MCH 34.2 pg (25.0-35.0); MCHC 33.8 g/dL (31.0-37.0); MCV 101.5 fL (80.0-100.0); Macrocytosis Slight; Mean Platelet Volume 7.6; Monocytes # (A) 0.7 k/uL (0-1.0); Monocytes % (A) 7 %; Neutrophils # (A) 6.6 k/uL (1.3-7.7); Neutrophils % (A) 73 %; Platelet Count 272 k/uL (150-450); RBC 3.43 m/uL (3.80-5.40); RDW 14.2 % (11.5-15.5); WBC 9.2 k/uL (3.8-10.6)
[2021-03-01 05:25] LABS: Albumin 3.2 g/dL (3.5-5.0); Calcium 8.8 mg/dL (8.4-10.2); Potassium 4.4 mmol/L (3.5-5.1); Total Bilirubin 0.5 mg/dL (0.2-1.3); Total Protein 5.8 g/dL (6.3-8.2)
[2021-03-01] MEDS ORDERED: LEVOTHYROXINE 125 MCG TAB PO SCH (06:30)
[2021-03-01] MEDS: carvediloL 3.125 MG TAB PO SCH ×2 (06:36→17:19)
[2021-03-01 06:57] LABS: T4, Free (Free Thyroxine) 0.92 ng/dL (0.78-2.19)
[2021-03-01] MEDS ORDERED: SODIUM CHLORIDE 0.9% 1,000 ML IV SCH (08:15)
--- NOTE | 2021-03-01 08:43 | P.HPIM ---
History of Present Illness This is a pleasant 80 years old female with past medical history of hypertension, CVA/TIA, breast cancer in 1990, coronary artery disease status post stent Patient is a transfer from [facility]. Patient needed CTA of the chest and they could not establish a line so the transfer her, and for higher level of care. And had recent right knee surgery replacement with Dr. Brady about a week ago on 02/20 and she was doing well. Today Dr. Brady called to check on the patient and he knew that she has some exertional dyspnea so he referred her to the hospital to be checked however patient states that she has this exertional dyspnea for many years now she does not think her respiratory symptoms are worsening than before she wants herself to be checked out for PE. Besides exertional dyspnea, she denies chest pain, she has some occasional dry cough from her nasal discharge as she states. No palpitations, no dizziness. No abdominal complaints like no abdominal pain or nausea vomiting. He complained patient denies fever. vitals are stable and she is afebrile, Labs were checked showing unremarkable CBC, elevated d-dimer 7.4, BMP and liver enzymes were unremarkable. Troponin is negative less than 0.012. ProBNP is normal at 102. TSH is high at 8.6 but normal free T4 at 0.9 Review of Systems CONSTITUTIONAL: No fever, no malaise, no fatigue. HEENT: No recent visual problems or hearing problems. Denied any sore throat. CARDIOVASCULAR: No orthopnea, PND, no palpitations, no syncope. PULMONARY: No shortness of breath, no cough, no hemoptysis. GASTROINTESTINAL: No diarrhea, no nausea, no vomiting, no abdominal pain. Normoactive bowel sounds. NEUROLOGICAL: No headaches, no weakness, no numbness. HEMATOLOGICAL: Denies any bleeding or petechiae. GENITOURINARY: Denies any burning micturition, frequency, or urgency. MUSCULOSKELETAL/RHEUMATOLOGICAL: Denies any joint pain, swelling, or any muscle pain. ENDOCRINE: Denies any polyuria or polydipsia. Past Medical History Past Medical History: CVA/TIA, Hypertension Additional Past Medical History / Comment(s): breast cx 1990, pt states mini stroke in her eye with blurrineness in right eye History of Any Multi-Drug Resistant Organisms: None Reported Past Surgical History: Heart Catheterization With Stent Past Anesthesia/Blood Transfusion Reactions: No Reported Reaction Date of Last Stent Placement:: 2006 Past Psychological History: No Psychological Hx Reported Smoking Status: Never smoker Past Alcohol Use History: None Reported Past Drug Use History: None Reported - Past Family History Father Additional Family Medical History / Comment(s): states lived to be 84, passed from brain tumor, cardiac disease Mother Family Medical History: Diabetes Mellitus Additional Family Medical History / Comment(s): states lived to be 83, from pancreatitis Brother(s) Family Medical History: Cancer, Hypertension Sister(s) Family Medical History: Cancer, Hypertension Medications and Allergies Home Medications Medication Instructions Recorded Confirmed Type Levothyroxine Sodium [Synthroid] 125 mcg PO DAILY 05/08/19 02/28/21 History Losartan [Cozaar] 50 mg PO DAILY #30 tab 05/11/19 02/28/21 Rx Nitroglycerin Sl Tabs [Nitrostat] 0.4 mg SUBLINGUAL Q5M PRN #25 tab 05/11/19 02/28/21 Rx carvediloL [Coreg] 3.125 mg PO BID-W/MEALS #60 tab 05/11/19 02/28/21 Rx Ascorbic Acid [Vitamin C] 1,000 mg PO DAILY 02/28/21 02/28/21 History Aspirin EC [Ecotrin] 325 mg PO BID 02/28/21 02/28/21 History Cholecalciferol (Vitamin D3) 125 mcg PO DAILY 02/28/21 02/28/21 History [Vitamin D3 (125 MCG = 5,000 IU)] Ferrous Sulfate [Feosol] 325 mg PO BID 02/28/21 02/28/21 History [place]-3 Fatty Acids/Fish Oil [Fish 1 cap PO DAILY 02/28/21 02/28/21 History Oil 1,000 mg Softgel] Rosuvastatin Calcium [Crestor] 20 mg PO HS 02/28/21 02/28/21 History oxyCODONE-APAP 5-325MG [Percocet 1 tab PO Q6HR PRN 02/28/21 02/28/21 History 5-325 mg] rOPINIRole HCL [Requip] 0.25 mg PO HS 02/28/21 02/28/21 History Allergies Allergy/AdvReac Type Severity Reaction Status Date / Time amoxicillin AdvReac Nausea & Verified 02/28/21 23:00 Vomiting & Diarrhea Physical Exam Vitals: Vital Signs Temp Pulse Resp BP Pulse Ox 03/01/21 04:00 97.8 F 83 17 139/63 97 03/01/21 02:00 83 17 02/28/21 23:10 78 18 156/71 98 Intake and Output 02/28/21 03/01/21 03/01/21 22:59 06:59 14:59 Other: Voiding Method Toilet Weight 82.2 kg GENERAL: The patient is alert and oriented x3, not in any acute distress. Well developed, well nourished. HEENT: Pupils are round and equally reacting to light. EOMI. No scleral icterus. No conjunctival pallor. Normocephalic, atraumatic. No pharyngeal erythema. No thyromegaly. CARDIOVASCULAR: S1 and S2 present. No murmurs, rubs, or gallops. PULMONARY: Chest is clear to auscultation, no wheezing or crackles. ABDOMEN: Soft, nontender, nondistended, normoactive bowel sounds. No palpable organomegaly. -MUSCULOSKELETAL: No joint swelling or deformity. Right knee wound is closed with min in, healing, no evidence of cellulitis EXTREMITIES: No cyanosis, clubbing, or pedal edema. NEUROLOGICAL: Gross neurological examination did not reveal any focal deficits. SKIN: No rashes. No petechiae Results CBC & Chem 7: 03/01/21 04:36 03/01/21 04:36 Labs: Abnormal Lab Results - Last 24 Hours (Table) 03/01/21 03/01/21 03/01/21 Range/Units 04:36 04:36 04:36 RBC 3.43 L (3.80-5.40) m/uL MCV 101.5 H (80.0-100.0) fL D-Dimer 7.44 H (<0.60) mg/L FEU Sodium 135 L (137-145) mmol/L BUN 27 H (7-17) mg/dL Glucose 116 H (74-99) mg/dL ALT 35 H (4-34) U/L Total Protein 5.8 L (6.3-8.2) g/dL Albumin 3.2 L (3.5-5.0) g/dL TSH 8.660 H (0.465-4.680) mIU/L Thrombosis Risk Factor Assmnt - Choose All That Apply Any of the Below Risk Factors Present?: No Assessment and Plan Assessment: Exertional dyspnea with Elevated d-dimer, suspicion for PE is high History of recent right knee replacement surgery about one week earlier Subclinical hypothyroidism Hypertension History of coronary artery disease status post stent History of CVA/TIA History of breast cancer in 1990 Plan: this is a pleasant 80 years old female who presents with exertional dyspnea and elevated d-dimer, rule out PE of the lung I explained to the patient the benefits and risks of the CT angiogram extensively including but not limited to the risk of ALLERGIC reaction and kidney damage which could be permanent she verbalized understanding and she wants to proceed with the test. Start normal sinus 75 mL/h Labs and medication were reviewed.. Continue same treatment. Continue with symptomatic treatment. Resume home medication. Monitor lytes and vitals. DVT and GI prophylaxis. Further recommendations depends on the clinical course of the patient DVT prophylaxis: Subcutaneous heparin GI Prophylaxis: Pepcid
[2021-03-01 08:45] VITALS: RESP 16
[2021-03-01] MEDS ORDERED: HEPARIN SODIUM,PORCINE/PF 5,000 UNIT/0.5 ML SYRINGE SQ SCH (09:00)
[2021-03-01] MEDS ORDERED: ASPIRIN 325 MG TAB PO SCH (09:00)
[2021-03-01] MEDS ORDERED: FAMOTIDINE 20 MG/2 ML VIAL IV SCH (09:00)
--- NOTE | 2021-03-01 11:07 | CT ---
EXAMINATION TYPE: CT chest angio for PE DATE OF EXAM: 03/01/2021 COMPARISON: 05/08/2019 HISTORY: 80-year-old female SOB, elevated d dimer, recent knee surgery TECHNIQUE: Contiguous axial scanning of the chest performed with IV Contrast, patient injected with 1 00 mL of Isovue 370. Coronal/sagittal MIP reconstructions performed. CT DLP: 297.2 mGycm Automated exposure control for dose reduction was used. FINDINGS: Heart normal size without pericardial effusion. LAD coronary artery calcifications are present. No fl attening of the interventricular septum or reflux of contrast into the hepatic veins. Ectatic ascending aorta 3.8 cm. Mild atherosclerotic arch calcifications. Bovine configuration to the aortic arch. Mild atherosclerotic narrowing origin of the left subclavian artery. Satisfactory opacification of the pulmonary nodule system without evidence for pulmonary embolus. Borderline sized left hilar lymph node at 1 cm similar to minimally larger from 2019, probably chroni c reactive/post inflammatory etiology. Otherwise, no thoracic lymphadenopathy by CT size criteria. There is mild diffuse bronchial wall thickening. Some scattered interstitial changes in the lower janine gs suggests mild fibrosis. No consolidation or pleural effusion. There is a small to moderate size hiatal hernia. Visualized upper abdomen shows no gross abnormality. Bones: Changes of DISH versus ankylosing spondylitis. IMPRESSION: 1. NO EVIDENCE FOR PULMONARY EMBOLUS. 2. LAD CORONARY ARTERY CALCIFICATIONS. 3. MILD DIFFUSE BRONCHIAL WALL THICKENING SUGGESTS BRONCHITIS OR CHRONIC ASTHMA. 4. SCATTERED RETICULAR THICKENING IN THE LOWER LUNGS SUGGESTS MILD INTERSTITIAL FIBROSIS. 4. SMALL TO MODERATE SIZE HIATAL HERNIA. 6. FURTHER CLINICAL CORRELATION RECOMMENDED: DISH VERSUS ANKYLOSING SPONDYLITIS.
[2021-03-01 11:54] VITALS: PULSE 79; TEMP 97.4
[2021-03-01] MEDS ORDERED: methylPREDNISolone SOD SUCCI 125 MG/2 ML VIAL IV STA (12:24)
[2021-03-01] MEDS ORDERED: predniSONE 10 MG TAB PO STA (12:37)
--- NOTE | 2021-03-01 14:13 | US ---
EXAMINATION TYPE: US venous doppler duplex LE DATE OF EXAM: 03/01/2021 1:55 PM COMPARISON: NONE CLINICAL HISTORY: Rule out DVT- Elevated DDimer per RN. Exam done portable. SIDE PERFORMED: Bilateral TECHNIQUE: The lower extremity deep venous system is examined utilizing real time linear array sonog debra with graded compression, doppler sonography and color-flow sonography. VESSELS IMAGED: Common Femoral Vein Deep Femoral Vein Greater Saphenous Vein * Femoral Vein Popliteal Vein Small Saphenous Vein * Proximal Calf Veins (* superficial vessels) There is normal flow, compressibility, vascular waveforms. 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 No ev ident deep venous thrombosis.
[2021-03-01] MEDS ORDERED: predniSONE 20 MG TAB PO STA (15:32)
[2021-03-01 16:20] VITALS: BP 138/65
[2021-03-01] MEDS ORDERED: ATORVASTATIN 40 MG TAB PO SCH (21:00)
== END 2021-03-01 17:32 | disposition home or self-care (01) ==
LOC: 3SCARD 22:34 → INTOOBSV 22:34
PROVIDERS: ADMIT Internal Medicine; ATTEND Internal Medicine
DX: R06.09 Other forms of dyspnea (principal); R79.89 Other specified abnormal findings of blood chemistry; Z96.651 Presence of right artificial knee joint; E03.8 Other specified hypothyroidism; I10 Essential (primary) hypertension; I25.10 Atherosclerotic heart disease of native coronary artery without angina pectoris; M71.22 Synovial cyst of popliteal space [Baker], left knee; M71.21 Synovial cyst of popliteal space [Baker], right knee; H53.8 Other visual disturbances; Z95.5 Presence of coronary angioplasty implant and graft; Z86.73 Personal history of transient ischemic attack (TIA), and cerebral infarction without residual deficits; Z85.3 Personal history of malignant neoplasm of breast; Z79.890 Hormone replacement therapy; Z79.899 Other long term (current) drug therapy; Z79.82 Long term (current) use of aspirin; Z88.0 Allergy status to penicillin; Z83.3 Family history of diabetes mellitus; Z82.49 Family history of ischemic heart disease and other diseases of the circulatory system; Z82.0 Family history of epilepsy and other diseases of the nervous system; Z83.79 Family history of other diseases of the digestive system; Z80.9 Family history of malignant neoplasm, unspecified; Z53.9 Procedure and treatment not carried out, unspecified reason
CPT/HCPCS: 96372; 96374; 85379; 84439; 83880; 80053; 84443; 84484; 85025; 71045; 93970; 71275; G0379; G0378; J7512; Q9967; J1644

== ENCOUNTER 2023-06-11 08:02 | Emergency (ER) | payer MEDICARE, BC ==
[2023-06-11] MEDS ORDERED: SODIUM CHLORIDE 0.9% 500 ML 500 ML IV STA (08:29)
[2023-06-11] MEDS ORDERED: LOSARTAN 50 MG TAB PO STA (08:30)
[2023-06-11] MEDS ORDERED: carvediloL 3.125 MG TAB PO STA (08:30)
[2023-06-11] MEDS ORDERED: LEVOTHYROXINE 125 MCG TAB PO STA (08:30)
[2023-06-11 08:36] VITALS: RESP 17
[2023-06-11 08:52] LABS: Glucose,Whole Blood 109 mg/dL (70-110)
[2023-06-11 09:02] LABS: INR 0.9 (<1.2); Partial Thromboplastin Time 24.2 sec (22.0-30.0); Prothrombin Time 10.3 sec (10.0-12.5)
[2023-06-11 09:03] LABS: Basophils # (A) 0.1 k/uL (0-0.2); Basophils % (A) 1 %; Eosinophils # (A) 0.2 k/uL (0-0.7); Eosinophils % (A) 3 %; HCT 47.9 % (34.0-46.0); HGB 16.1 gm/dL (11.4-16.0); Lymphocytes # (A) 1.4 k/uL (1.0-4.8); Lymphocytes % (A) 20 %; MCHC 33.6 g/dL (31.0-37.0); MCV 98.2 fL (80.0-100.0); Monocytes # (A) 0.4 k/uL (0-1.0); Monocytes % (A) 6 %; Neutrophils # (A) 4.5 k/uL (1.3-7.7); Neutrophils % (A) 67 %; Platelet Count 161 k/uL (150-450); RBC 4.88 m/uL (3.80-5.40); RDW 12.7 % (11.5-15.5); WBC 6.7 k/uL (3.8-10.6)
[2023-06-11 09:07] LABS: ALT 34 U/L (4-34); AST 36 U/L (14-36); African American GFR (CKD) 77 (>60 ml/min/1.73 sqM); Albumin 4.3 g/dL (3.5-5.0); Alkaline Phosphatase 68 U/L (38-126); Anion Gap 11 mmol/L; Blood Urea Nitrogen 26 mg/dL (7-17); Calcium 9.4 mg/dL (8.4-10.2); Carbon Dioxide 24 mmol/L (22-30); Chloride 106 mmol/L (98-107); Creatine Kinase 124 U/L (30-135); Glucose 117 mg/dL (74-99); Non-African American GFR(CKD) 66 (>60 ml/min/1.73 sqM); Potassium 4.8 mmol/L (3.5-5.1); Sodium 141 mmol/L (137-145); Total Bilirubin 0.6 mg/dL (0.2-1.3); Total Protein 7.4 g/dL (6.3-8.2)
--- NOTE | 2023-06-11 09:09 | ED ---
General Adult HPI - General Chief complaint: Neuro Symptoms/Deficit Stated complaint: Neuro symptoms Time Seen by Provider: 06/11/23 08:25 Source: patient, RN notes reviewed, old records reviewed Mode of arrival: ambulatory Limitations: no limitations - History of Present Illness Initial comments: Patient is an 82-year-old female presents emergency Department complaining of neuro symptoms. Patient states she woke this morning and had a Burning/parest hesia sensation radiating from her right foot up to her right arm that lasted less than 10 seconds. States it felt like paresthesias. Does have a history of previous TIAs, cardiac stents. No other acute complaints at this time. Eyes any headaches, acute blurry vision. 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 Denies chest pain or shortness of breath. Denies abdominal pain, nausea, vomiting. Did not take any of her morning antihypertensive medications. The symptoms she had this morning or at approximately 5:30 AM. I evaluated the patient at approximately 8:25 AM when she presented to the emergency department and was placed in a room. - Related Data Home Medications Medication Instructions Recorded Confirmed Levothyroxine Sodium [Synthroid] 125 mcg PO DAILY 05/08/19 02/28/21 Ascorbic Acid [Vitamin C] 1,000 mg PO DAILY 02/28/21 02/28/21 Aspirin EC [Ecotrin] 325 mg PO BID 02/28/21 02/28/21 Cholecalciferol (Vitamin D3) 125 mcg PO DAILY 02/28/21 02/28/21 [Vitamin D3 (125 MCG = 5,000 IU)] Ferrous Sulfate [Iron (65 MG 325 mg PO BID 02/28/21 02/28/21 Elemental)] [address] Fatty Acids/Fish Oil [Fish 1 cap PO DAILY 02/28/21 02/28/21 Oil 1,000 mg Softgel] Rosuvastatin Calcium [Crestor] 20 mg PO HS 02/28/21 02/28/21 oxyCODONE-APAP 5-325MG [Percocet 1 tab PO Q6HR PRN 02/28/21 02/28/21 5-325 mg] rOPINIRole HCL [Requip] 0.25 mg PO HS 02/28/21 02/28/21 Previous Rx's Medication Instructions Recorded Losartan [Cozaar] 50 mg PO DAILY #30 tab 05/11/19 Nitroglycerin Sl Tabs [Nitrostat] 0.4 mg SUBLINGUAL Q5M PRN #25 tab 05/11/19 carvediloL [Coreg] 3.125 mg PO BID-W/MEALS #60 tab 05/11/19 Famotidine [Pepcid] 40 mg PO HS 21 Days #21 tab 03/01/21 predniSONE 10 mg PO DIRECTED #18 tab 03/01/21 Allergies Allergy/AdvReac Type Severity Reaction Status Date / Time amoxicillin AdvReac Nausea & Verified 06/11/23 08:16 Vomiting & Diarrhea Review of Systems ROS Statement: Those systems with pertinent positive or pertinent negative responses have been documented in the HPI. Review of Systems: CONST: Denies fever EYES: Denies blurry vision ENT: Denies nasal congestion C/V: Denies Chest pain RESP: Denies shortness of breath GI: Denies abdominal pain : Denies dysuria SKIN: Denies rash. MSK: Denies joint pain. NEURO: Denies headache ROS Other: All systems not noted in ROS Statement are negative. Past Medical History Past Medical History: Cancer, CVA/TIA, Hypertension Additional Past Medical History / Comment(s): breast cx 1990, pt states mini stroke in her eye with blurrineness in right eye History of Any Multi-Drug Resistant Organisms: None Reported Past Surgical History: Heart Catheterization With Stent Additional Past Surgical History / Comment(s): lumpectomy left side Past Anesthesia/Blood Transfusion Reactions: No Reported Reaction Date of Last Stent Placement:: 2006 Past Psychological History: No Psychological Hx Reported Smoking Status: Never smoker Past Alcohol Use History: None Reported Past Drug Use History: None Reported - Past Family History Father Additional Family Medical History / Comment(s): states lived to be 84, passed from brain tumor, cardiac disease Mother Family Medical History: Diabetes Mellitus Additional Family Medical History / Comment(s): states lived to be 83, from pancreatitis Brother(s) Family Medical History: Cancer, Hypertension Sister(s) Family Medical History: Cancer, Hypertension General Exam - General Exam Comments Initial Comments: General: Appears in no acute distress. HEAD: Normal with no signs of head trauma. EYES: PERRLA, EOMI, conjunctiva normal, no discharge. ENT: Hearing grossly intact, normal oropharynx. RESPIRATORY: Clear breath sounds bilaterally. No wheezes, rales, or rhonchi. C/V: Regular rate and rhythm. S1 and S2 auscultated, no edema, peripheral pulses 2+ and intact throughout ABD: Abd is soft, nontender, nondistended EXT: Normal range of motion, no obvious deformity SKIN: No rashes or lesions observed on exposed skin. NEURO: Alert and oriented x 4. Cranial nerves II-XII intact. No focal sensory or strength deficits. GCS of 15. NIH currently of 0. Ambulates with a cane at baseline. Cerebellar function intact as evident by normal finger nose testing and [id number] testing. Limitations: no limitations Course Vital Signs 06/11/23 06/11/23 06/11/23 08:12 08:25 09:35 Temperature 98.1 F Pulse Rate 67 68 65 Respiratory 16 17 17 Rate Blood Pressure 208/82 209/101 189/66 O2 Sat by Pulse 97 100 99 Oximetry 06/11/23 10:10 Temperature 97.9 F Pulse Rate 60 Respiratory 17 Rate Blood Pressure 173/75 O2 Sat by Pulse 99 Oximetry Medical Decision Making - Medical Decision Making Was pt. sent in by a medical professional or institution (, PA, GRAPHIC USER INTERFACE DESIGNER, urgent care, hospital, or fdc...) When possible be specific @ -No Did you speak to anyone other than the patient for history (EMS, parent, family, police, friend...)? What history was obtained from this source @ -No Did you review nursing and triage notes (agree or disagree)? Why? @ -I reviewed and agree with nursing and triage notes Were old charts reviewed (outside hosp., previous admission, EMS record, old EKG, old radiological studies, urgent care reports/EKG's, fdc records)? Report findings @ -Old charts reviewed Differential Diagnosis (chest pain, altered mental status, abdominal pain women, abdominal pain men, vaginal bleeding, weakness, fever, dyspnea, syncope, headache, dizziness, GI bleed, back pain, seizure, CVA, palpatations, mental health, musculoskeletal)? @ -Differential CVA Ischemic stroke, hemorrhagic stroke, brain tumor, atypical migraine, Wernicke's encephalopathy, seizure, multiple sclerosis, meningitis, encephalitis, hypoglycemia, Guillain-Rosas, electrolytes disturbance, myasthenia gravis.... This is not meant to be an all-inclusive list EKG interpreted by me (3pts min.). @ -As above X-rays interpreted by me (1pt min.). @ -Chest x-ray reveals no obvious acute cardiopulmonary process. CT interpreted by me (1pt min.). @ -CT brain revealed no evidence of acute intracranial process. CT angiogram of the head and neck reveals no obvious large vessel occlusion or acute process. U/S interpreted by me (1pt. min.). @ -None done What testing was considered but not performed or refused? (CT, X-rays, U/S, labs)? Why? @ -None What meds were considered but not given or refused? Why? @ -Considered administering an aspirin however patient took a total of 750mg of aspirin prior to arrival Did you discuss the management of the patient with other professionals (professionals i.e. , PA, GRAPHIC USER INTERFACE DESIGNER, lab, RT, psych nurse, high school social studies teacher, mine safety director, teacher, purchasing officer, case packer and sealer)? Give summary @ -No Was smoking cessation discussed for >3mins.? @ -No Was critical care preformed (if so, how long)? @ -No Were there social determinants of health that impacted care today? How? (Homelessness, low income, unemployed, alcoholism, drug addiction, transportation, low edu. Level, literacy, decrease access to med. care, long term, rehab)? @ -No Was there de-escalation of care discussed even if they declined (Discuss DNR or withdrawal of care, Hospice)? DNR status @ -No What co-morbidities impacted this encounter? (DM, HTN, Smoking, COPD, CAD, Canc er, CVA, ARF, Chemo, Hep., AIDS, mental health diagnosis, sleep apnea, morbid obesity)? @ -None Was patient admitted / discharged? Hospital course, mention meds given and route, prescriptions, significant lab abnormalities, going to OR and other pertinent info. @ -Based on the patient's presentation and physical exam, presents with what sounds like paresthesias on the right side of her body that are momentary this morning at approximately 5:30 AM. Symptoms have since resolved. Vital signs remarkable for hypertension, patient did not take her morning antihypertensives. We will administer the morning antihypertensives, and she has no current symptoms or complaints at this time. Patient therefore will not be made a code stroke is NIH is 0. However we will work her up similarly as a code stroke. She was in agreement this plan. Patient states she does have a history of UTIs and we will obtain urinalysis. Patient administered a small IV fluid bolus, and given doses of her morning medications Coreg, Synthroid, Cozaar. Patient's imaging reveals no obvious acute process or evidence of acute stroke. EKG shows no signs of acute ischemia. Patient's laboratory studies are within acceptable limits including a negative urinalysis. Patient's blood pressure is improving as well and patient remains asymptomatic. I discussed the workup with the patient. She expressed understanding. Patient remains asymptomatic. NIH remains 0. Unknown reason for her brief paresthesias earlier but I believe it is safer to be discharged home at this time. She was in agreement with this plan. Strict return precautions discussed. Recommended follow-up with her PCP. I instructed the patient to follow up with their PCP in the next 1-3 days. I explained that the patient should return to the emergency department if they experience any worsening symptoms. Strict return precautions were discussed with the patient. The patient expressed understanding of these instructions. I answered all questions that the patient had. The patient was discharged home in good condition with their prescriptions and follow up information. Undiagnosed new problem with uncertain prognosis? @ -No Drug Therapy requiring intensive monitoring for toxicity (Heparin, Nitro, Insulin, Cardizem)? @ -No Were any procedures done? @ -No Diagnosis/symptom? @ -Paresthesias Acute, or Chronic, or Acute on Chronic? @ -Acute Uncomplicated (without systemic symptoms) or Complicated (systemic symptoms)? @ -Uncomplicated Side effects of treatment? @ -none Exacerbation, Progression, or Severe Exacerbation] @ -no Poses a threat to life or bodily function? @ -no Diagnosis/symptom? @ -Asymptomatic hypertension Acute, or Chronic, or Acute on Chronic? @ -Acute Uncomplicated (without systemic symptoms) or Complicated (systemic symptoms)? @ -Uncomplicated Side effects of treatment? @ -none Exacerbation, Progression, or Severe Exacerbation] @ -no Poses a threat to life or bodily function? @ -no - Lab Data Result diagrams: 06/11/23 08:41 06/11/23 08:41 Lab Results 06/11/23 06/11/23 06/11/23 Range/Units 08:41 08:41 08:41 WBC 6.7 (3.8-10.6) k/uL RBC 4.88 (3.80-5.40) m/uL Hgb 16.1 H (11.4-16.0) gm/dL Hct 47.9 H (34.0-46.0) % MCV 98.2 (80.0-100.0) fL MCH 33.0 (25.0-35.0) pg MCHC 33.6 (31.0-37.0) g/dL RDW 12.7 (11.5-15.5) % Plt Count 161 (150-450) k/uL MPV 8.0 Neutrophils % 67 % Lymphocytes % 20 % Monocytes % 6 % Eosinophils % 3 % Basophils % 1 % Neutrophils # 4.5 (1.3-7.7) k/uL Lymphocytes # 1.4 (1.0-4.8) k/uL Monocytes # 0.4 (0-1.0) k/uL Eosinophils # 0.2 (0-0.7) k/uL Basophils # 0.1 (0-0.2) k/uL PT 10.3 (10.0-12.5) sec INR 0.9 (<1.2) APTT 24.2 (22.0-30.0) sec Sodium (137-145) mmol/L Potassium (3.5-5.1) mmol/L Chloride (98-107) mmol/L Carbon Dioxide (22-30) mmol/L Anion Gap mmol/L BUN (7-17) mg/dL Creatinine (0.52-1.04) mg/dL Est GFR (CKD-EPI)AfAm (>60 ml/min/1.73 sqM) Est GFR (CKD-EPI)NonAf (>60 ml/min/1.73 sqM) Glucose (74-99) mg/dL POC Glucose (mg/dL) (70-110) mg/dL POC Glu Industrial Servicer ID Calcium (8.4-10.2) mg/dL Total Bilirubin (0.2-1.3) mg/dL AST (14-36) U/L ALT (4-34) U/L Alkaline Phosphatase (38-126) U/L Creatine Kinase (30-135) U/L Total Protein (6.3-8.2) g/dL Albumin (3.5-5.0) g/dL Urine Color Light Yellow Urine Appearance Clear (Clear) Urine pH 6.0 (5.0-8.0) Ur Specific [place] 1.010 (1.001-1.035) Urine Protein Negative (Negative) Urine Glucose (UA) Negative (Negative) Urine Ketones Negative (Negative) Urine Blood Negative (Negative) Urine Nitrite Negative (Negative) Urine Bilirubin Negative (Negative) Urine Urobilinogen 0.2 (<2.0) mg/dL Ur Leukocyte Esterase Negative (Negative) 06/11/23 06/11/23 Range/Units 08:41 08:46 WBC (3.8-10.6) k/uL RBC (3.80-5.40) m/uL Hgb (11.4-16.0) gm/dL Hct (34.0-46.0) % MCV (80.0-100.0) fL MCH (25.0-35.0) pg MCHC (31.0-37.0) g/dL RDW (11.5-15.5) % Plt Count (150-450) k/uL MPV Neutrophils % % Lymphocytes % % Monocytes % % Eosinophils % % Basophils % % Neutrophils # (1.3-7.7) k/uL Lymphocytes # (1.0-4.8) k/uL Monocytes # (0-1.0) k/uL Eosinophils # (0-0.7) k/uL Basophils # (0-0.2) k/uL PT (10.0-12.5) sec INR (<1.2) APTT (22.0-30.0) sec Sodium 141 (137-145) mmol/L Potassium 4.8 (3.5-5.1) mmol/L Chloride 106 (98-107) mmol/L Carbon Dioxide 24 (22-30) mmol/L Anion Gap 11 mmol/L BUN 26 H (7-17) mg/dL Creatinine 0.82 (0.52-1.04) mg/dL Est GFR (CKD-EPI)AfAm 77 (>60 ml/min/1.73 sqM) Est GFR (CKD-EPI)NonAf 66 (>60 ml/min/1.73 sqM) Glucose 117 H (74-99) mg/dL POC Glucose (mg/dL) 109 (70-110) mg/dL POC Glu Industrial Servicer ID Lacie Shabazz Calcium 9.4 (8.4-10.2) mg/dL Total Bilirubin 0.6 (0.2-1.3) mg/dL AST 36 (14-36) U/L ALT 34 (4-34) U/L Alkaline Phosphatase 68 (38-126) U/L Creatine Kinase 124 (30-135) U/L Total Protein 7.4 (6.3-8.2) g/dL Albumin 4.3 (3.5-5.0) g/dL Urine Color Urine Appearance (Clear) Urine pH (5.0-8.0) Ur Specific [place] (1.001-1.035) Urine Protein (Negative) Urine Glucose (UA) (Negative) Urine Ketones (Negative) Urine Blood (Negative) Urine Nitrite (Negative) Urine Bilirubin (Negative) Urine Urobilinogen (<2.0) mg/dL Ur Leukocyte Esterase (Negative) - EKG Data -: EKG Interpreted by Me EKG Comments: 12-lead Electrocardiogram Interpretation Note EKG was reviewed and interpreted by myself. 12-lead ECG performed at 0917 is interpreted by me as revealing normal sinus rhythm at a rate of 68 beats per minute. [place] is normal. CT interval is 165 ms, QRS duration is 84 ms, she is 428 ms.. There were no ST or T wave abnormalities to suggest myocardial ischemia or injury. R wave progression across the precordium was satisfactory. By my interpretation this EKG is non-diagnostic for acute ischemia. Disposition Clinical Impression: Complaint of paresthesia, Hypertension Disposition: HOME SELF-CARE Condition: Good Is patient prescribed a controlled substance at d/c from ED?: No Referrals: Agustin Duron DO [Primary Care Provider] - 1-2 days Time of Disposition: 10:19
--- NOTE | 2023-06-11 09:34 | CT ---
EXAMINATION TYPE: CT brain wo con DATE OF EXAM: 06/11/2023 HISTORY: Neuro deficit, acute, stroke suspected CT DLP: 1179.6 mGycm. Automated Exposure Control for Dose Reduction was Utilized. TECHNIQUE: CT scan of the head is performed without contrast. COMPARISON: None. FINDINGS: There is no acute intracranial hemorrhage or midline shift identified. There is mild diff use ventricular and sulcal prominence consistent with diffuse age-related cerebral atrophy. There is moderate low-attenuation in the deep and periventricular white matter most likely consistent with ch ronic small vessel ischemic change in patient of this age. Scleral calcification bilateral globes is present. There is large mucous retention cyst or polyp in the left maxillary sinus otherwise the para nasal sinuses are grossly clear. IMPRESSION: No acute intracranial hemorrhage or midline shift. There is mild diffuse age-related ce rebral atrophy and moderate nonspecific white matter changes favor product of chronic small vessel is chemic change in patient of this age noted.
[2023-06-11 09:45] LABS: Appearance,Urine Clear (Clear); Bilirubin,Urine Negative (Negative); Blood,Urine Negative (Negative); Color,Urine Light Yellow; Glucose,Urine (UA) Negative (Negative); Ketones,Urine Negative (Negative); Leukocyte Esterase,Urine Negative (Negative); Nitrite,Urine Negative (Negative); Protein,Urine Negative (Negative); Urobilinogen,Urine 0.2 mg/dL (<2.0)
--- NOTE | 2023-06-11 10:04 | CT ---
EXAMINATION TYPE: CT angio head neck DATE OF EXAM: 06/11/2023 HISTORY: Neuro deficit, acute, stroke suspected COMPARISON: None. CT DLP: 474.9 mGycm. Automated Exposure Control for Dose Reduction was Utilized. TECHNIQUE: CTA scan of the head and neck is performed without and with IV Contrast, patient injected with 65ml mL of Isovue 370, axial images are obtained, coronal and sagittal reformatted images are r eviewed. 3D reconstructed images are created on an independent workstation and reviewed. FINDINGS: Carotid/Vascular Structures: There is bovine type aortic arch which is normal variant. Mild periphera l plaque in the arch is seen. More prominent calcified plaque is seen in origin of the left subclavia n artery without significant stenosis. There is tortuous course to the common carotid arteries bilate rally. There is moderate peripheral calcified plaque in the right carotid bulb extending into proxima l internal carotid artery . No greater than 50% stenosis is seen. Mild calcified plaque left carotid bulb is less prominent versus right side without significant stenosis. Patent external carotid arteri es bilaterally without significant stenosis. There are codominant vertebral arteries patent to the ba silar junction. There is hypoplastic left P1 segment with filling of the left P2 segment due to paten t posterior communicating artery. There is no large vessel occlusion or aneurysm at the level of the [place]. Other: No significant additional finding. IMPRESSION: No significant stenosis in common or internal carotid arteries bilaterally. No aneurysm at the level of the [place] of [place]. NASCET criteria was used in interpretation of this exam?
[2023-06-11 10:13] VITALS: BP 173/75; PULSE 60; TEMP 97.9
--- NOTE | 2023-06-11 10:14 | XR ---
EXAMINATION TYPE: XR chest 2V DATE OF EXAM: 06/11/2023 COMPARISON: 03/01/2021 HISTORY: Shortness of breath TECHNIQUE: Frontal and lateral views of the chest are obtained. FINDINGS: Scattered senescent parenchymal changes noted. Hyperinflation compatible with COPD. No evidence for infiltrate. No evidence for atelectasis. Heart size is stable. Mediastinal structures are stable and grossly unremarkable. No evidence for hilar prominence. Degenerative changes dorsal spine. IMPRESSION: 1. No evidence for acute pulmonary disease.
== END 2023-06-11 10:42 | disposition home or self-care (01) ==
LOC: EC 08:02
DX: R20.2 Paresthesia of skin (principal); I10 Essential (primary) hypertension; Z79.82 Long term (current) use of aspirin; Z79.899 Other long term (current) drug therapy; Z88.0 Allergy status to penicillin; Z95.5 Presence of coronary angioplasty implant and graft
CPT/HCPCS: 99285 ×2; 96360 ×2; 96361 ×2; 36415; 93005; 80053; 82550; 85025; 85610; 85730; 81003; 71046; 70496; 70450; 70498; Q9967